=== PATIENT | male | born 1970 | race African-American/Black ===

== ENCOUNTER → 2018-10-17 | Emergency (ER) | payer OTHER ==
[~2018-10-17] MED LIST: KETOROLAC TROMETHAMINE 60 MG/2 ML VIAL IM ONE; KETOROLAC TROMETHAMINE 60 MG/2 ML VIAL ONE; LIDOCAINE 5% TOPICAL PATCH ONE; LIDOCAINE 5% TOPICAL PATCH TP ONE; LIDOCAINE PATCH REMOVAL MC SCH
--- NOTE | 2018-10-17 08:03 | PDOC ---
History of Present Illness - General Chief Complaint: Back Pain Stated Complaint: BACK PAIN Time Seen by Provider: 10/17/18 08:01 History Source: Patient Exam Limitations: No Limitations Past History - Travel Traveled outside of the country in the last 30 days: No Close contact w/someone who was outside of country & ill: No - Past Medical History Allergies/Adverse Reactions: Allergies Allergy/AdvReac Type Severity Reaction Status Date / Time No Known Allergies Allergy Verified 01/20/16 18:08 Home Medications: Ambulatory Orders Ibuprofen 600 mg PO QID PRN #20 tablet 01/20/16 Methadone [Dolophine -] 90 mg PO DAILY 01/20/16 Acetaminophen [Tylenol -] 650 mg PO Q4H #100 tablet 10/17/18 Cyclobenzaprine HCl [Flexeril -] 10 mg PO HS #10 tablet 10/17/18 Methylprednisolone [Medrol Dose Cleve] 4 mg PO ASDIR #21 tablet 10/17/18 COPD: No - Immunization History Immunization Up to Date: Yes - Suicide/Smoking/Psychosocial Hx Smoking History: Current every day smoker Have you smoked in the past 12 months: No Number of Cigarettes Smoked Daily: 20 Information on smoking cessation initiated: No Hx Alcohol Use: Yes Drug/Substance Use Hx: Yes Review of Systems - Review of Systems Able to Perform ROS?: Yes Comments:: 10/17/18 08:02 CONSTITUTIONAL: Absent: fever, chills, diaphoresis, generalized weakness, malaise, loss of appetite GASTROINTESTINAL: Absent: abdominal pain, abdominal distension, nausea, vomiting, diarrhea, constipation, melena, hematochezia GENITOURINARY: Absent: dysuria, frequency, urgency, hesitancy, hematuria, flank pain, genital pain MUSCULOSKELETAL: Present: low back pain Absent: arthralgia, joint swelling SKIN: Absent: rash, itching, pallor NEUROLOGIC: Absent: headache, focal weakness or paresthesias, dizziness, unsteady gait, seizure, mental status changes, bladder or bowel incontinence PSYCHIATRIC: Absent: anxiety, depression, suicidal or homicidal ideation, hallucinations. Is the patient limited Kazakh proficient: No *Physical Exam - Vital Signs Last Vital Signs Temp Pulse Resp BP Pulse Ox 97.6 F 65 18 131/64 98 10/17/18 07:45 10/17/18 07:45 10/17/18 07:45 10/17/18 07:45 10/17/18 07:45 - Physical Exam Comments: 10/17/18 08:02 GENERAL: Well developed, well nourished. Awake and alert. No acute distress. NECK: Supple. Full ROM. No JVD. Carotid pulses 2+ and symmetric, without bruits. No thyromegaly. No lymphadenopathy. MUSCULOSKELETAL TTP of the B/L paraspinous muscles pain worse on the L, L3-S1, with palpable knot consistent with muscle spasm. (+) straight leg raise on the L. No midline tenderness. Decreased ROM of the low back d/t pain. Normal range of motion at all other joints. No bony deformities or tenderness. No CVA tenderness. EXTREMITIES: No cyanosis. No clubbing. No edema. No calf tenderness. SKIN: Warm and dry. Normal capillary refill. No rashes. No jaundice. NEUROLOGICAL: Alert, awake, appropriate. Cranial nerves 2-12 intact. No deficits to light touch and temperature in face, upper extremities and lower extremities. No motor deficits in the in face, upper extremities and lower extremities. Normoreflexic in the upper and lower extremities. Normal speech. Toes are down- going bilaterally. Gait is normal without ataxia. Medical Decision Making - Medical Decision Making 10/17/18 08:03 HPI:the patient is a 48-year-old male with past medical history of herniated disks, opioid dependence, who presents to the ER today for low back pain. Patient states he fell approximately 1 month ago and hurt his back. He was told at that time he had herniated disc. He states that occasionally now when he is walking he will feel a pull in the back. He states that he was walking to work today he felt the twinge in his left lower back and the pain got worse so he called 911. Patient is ambulatory at this time. Denies fevers, chills, trauma, fall, nausea, vomiting, weakness to the lower extremities, numbness and tingling to the lower extremities, saddle anesthesia and bladder bowel incontinence. A/P: Low back pain -Pt with TTP of the B/L paraspinous muscles pain worse on the L, L3-S1, with palpable knot consistent with muscle spasm. (+) straight leg raise on the L. No midline tenderness -No new trauma, or fever. No saddle anesthesia or bladder/bowel incontinence. No CVA tenderness. -Pt is neurologically intact on exam with no focal findings. -Toradol given with relief of symptoms -DC home. Pt to f/u with her PCP. Ortho referral given. -I discussed the physical exam findings, ancillary test results and final diagnoses with the patient. I answered all of the patient's questions. The patient was satisfied with the care received and felt comfortable with the discharge plan and treatment plan. The Patient agrees to follow up with the primary care physician/specialist within 24-72 hours. Return precautions were given. *DC/Admit/Observation/Transfer Diagnosis at time of Disposition: Low back pain Qualifiers: Chronicity: acute Back pain laterality: bilateral Sciatica presence: with sciatica Sciatica laterality: sciatica of left side Qualified Code(s): M54.42 - Lumbago with sciatica, left side - Discharge Dispostion Disposition: HOME Condition at time of disposition: Stable Decision to Admit order: No - Referrals Referrals: Luis Campbell MD [Primary Care Provider] - Brijesh Villela MD, FAANS [Staff Physician] - - Patient Instructions Printed Discharge Instructions: DI for Back Pain With Sciatica Additional Instructions: You were evaluated for your low back pain today and sciatica. It is most likely due to a muscle spasm Please take the Tylenol and Prednisone pack as directed Take the Flexiril every 8 hours the first day. Then take the medication at night only. Do not drink or drive after taking this medication as it may make you drowsy. You may apply warm compresses to the area. Please follow up with orthopedics if your symptoms do not improve this week; a referral has been provided to you Return to the ER for worsening pain despite treatment, numbness/weakness down the extremities, changes in the way you walk, numbness/tingling to the groin, if you have bladder/bowel incontinence, or if you have any changes in your symptoms. - Post Discharge Activity Forms/Work/School Notes: Back to Work
[2018-10-17 08:05] VITALS: BP 131/64; PULSE 65; TEMP 97.6; BMI 34.8
== END | disposition home or self-care (01) ==
LOC: JER 07:36
PROC: 3E0233Z Introduction of Anti-inflammatory into Muscle, Percutaneous Approach (ICD-10-PCS; principal; 2018-10-17)
DX: M54.42 Lumbago with sciatica, left side (principal); F11.20 Opioid dependence, uncomplicated; F17.210 Nicotine dependence, cigarettes, uncomplicated
CPT/HCPCS: 99281-25

== ENCOUNTER 2019-07-23 13:18 | Inpatient (IN) | payer OTHER ==
[2019-07-23 14:51] VITALS: BMI 36.6
--- NOTE | 2019-07-23 15:52 | HP ---
COWS - Scale Resting Pulse: 0= [place] 80 or Below Sweatin= No chills or Flushing Restless Observation: 5= Unable to Sit Still Pupil Size: 2= Moderately Dilated Bone or Joint Aches: 0= None Runny Nose/ Eye Tearin= Runny Nose/Eyes GI Upset > 30mins: 1= Stomach Cramp Tremor Observation: 4= Gross Tremor/Twitching Yawning Observation: 2= >3x During Session Anxiety or Irritability: 2=Irritable/Anxious Goose Flesh Skin: 3=Piloerection COWS Score: 21 CIWA Score - Admission Criteria OASAS Guidelines: Admission for Medically Managed Detox: Requires at least one of the followin. CIWA greater than 12 2. Seizures within the past 24 hours 3. Delirium tremens within the past 24 hours 4. Hallucinations within the past 24 hours 5. Acute intervention needed for co occurring medical disorder 6. Acute intervention needed for co occurring psychiatric disorder 7. Severe withdrawal that cannot be handled at a lower level of care (continued vomiting, continued diarrhea, abnormal vital signs) requiring intravenous medication and/or fluids 8. Admitting History and Physical - Admission History of Present Illness: Seeking detox from heroin. Is not in a methadone program. States he will be in a program starting this coming Sunday. Heroin: since age 20. 10 bags daily. Sniffs. Never injected. Has withdrawn. Has detoxed in the past. Last use was yesterday. Tobacco: smokes 10 cig/day since age 24 No other substance use. Denies alcohol, cocaine, PCP. Feels anxious presently. Has a headache. No nausea. Feels tingling/itching of the skin. Tremors. COWS 21 PMH: none PSH: none Psych: Anxiety/Depression Meds: was on Remeron, Seroquel (stopped last Mar because he lost his medicaid) All: none Soc: long-term. Sexually active with 1 partner, no protection. Last HIV screen during his incarceration last Feb was negative. - Smoking History Smoking history: Current every day smoker Have you smoked in the past 12 months: No Aproximately how many cigarettes per day: 10 - Alcohol/Substance Use Hx Alcohol Use: Yes Admission ROS S - HPI Allergies/Adverse Reactions: Allergies Allergy/AdvReac Type Severity Reaction Status Date / Time No Known Allergies Allergy Verified 07/23/19 14:41 Patient History - Patient Medical History Hx Asthma: No Hx Chronic Obstructive Pulmonary Disease (COPD): No Hx Cardiac Disorders: Yes (unable to describe) Hx Hypertension: No Hx Seizures: No Hx Diabetes: No Hx Gastrointestinal Disorders: No Hx Genitourinary Disorders: No Hx Sexually Transmitted Disorders: No Hx Renal Disease (ESRD): No Hx Depression: Yes Hx Suicide Attempt: No Hx Schizophrenia: No - Patient Surgical History Past Surgical History: No Hx Neurologic Surgery: No Hx Cataract Extraction: No Hx Cardiac Surgery: No Hx Lung Surgery: No Hx Breast Surgery: No Hx Breast Biopsy: No Hx Abdominal Surgery: No Hx Appendectomy: No Hx Cholecystectomy: No Hx Genitourinary Surgery: No Hx Section: No Hx Orthopedic Surgery: No Anesthesia Reaction: No - Reproductive History Patient : No - Smoking Cessation Smoking history: Current every day smoker Have you smoked in the past 12 months: No Aproximately how many cigarettes per day: 10 Hx Chewing Tobacco Use: No Initiated information on smoking cessation: Yes 'Breaking Loose' booklet given: 07/23/19 - Substances abused Heroin Substance route: Inhalation Frequency: Daily Amount used: 10 bags Age of first use: 20 Date of last use: 07/22/19 Admission Physical Exam [facility] - Vital Signs Vital Signs: Vital Signs - 24 hr 07/23/19 14:43 Temperature 97.2 F L Pulse Rate 69 Respiratory 20 Rate Blood Pressure 124/64 - Physical General Appearance: Yes: Other (anxious, pacing) HEENTM: Yes: Within Normal Limits, EOMI, Hearing grossly Normal, Normal ENT Inspection, Normocephalic, Normal Voice, CAIT (5-6mm pupils) Respiratory: Yes: Within Normal Limits, Chest Non-Tender, Lungs Clear Neck: Yes: Within Normal Limits, No masses,lesions,Nodules Cardiology: Yes: Within Normal Limits, Regular Rhythm, Regular Rate, S1, S2. No : Murmur Back: Yes: Within Normal Limits, Normal Inspection Extremities: Yes: Within Normal Limits, Swelling Neurological: Yes: Within Normal Limits, lacquer mixer II-XII NML intact, Fully Oriented, Alert, Motor Strength 5/5, Normal Response Breathalyzer - Breathalyzer Breathalyzer: 0 Urine Drug Screen - Test Device Lot number: [id number] Expiration date: 05/17/21 - Control Is test valid?: Yes - Results Drug screen NEGATIVE: Yes Urine drug screen results: MOP-Opiates Inpatient Rehab Admission - Rehab Decision to Admit Inpatient rehab admission?: No
[2019-07-23] MEDS ORDERED: BISMUTH SUBSALICYLATE 524 MG/30 ML UD PO PRN (16:19)
[2019-07-23] MEDS ORDERED: METHOCARBAMOL 500 MG TABLET PO PRN (16:19)
[2019-07-23] MEDS ORDERED: IBUPROFEN 400 MG TABLET (FP) PO PRN (16:19)
[2019-07-23] MEDS ORDERED: MELATONIN 5 MG TABLETS PO PRN (16:19)
[2019-07-23] MEDS ORDERED: MENTHOL/PHENOL 1 EACH UD MM PRN (16:19)
[2019-07-23] MEDS ORDERED: cloNIDine HCL 0.1 MG TABLET PO PRN (16:19)
[2019-07-23] MEDS ORDERED: MAG HYDROX/AL HYDROX/SIMETH 30 ML UNIT-DOSE CUP PO PRN (16:19)
[2019-07-23] MEDS ORDERED: MAGNESIUM HYDROX 2400MG/30ML ORAL SUSPENSION 30 ML CUP PO PRN (16:19)
[2019-07-23] MEDS ORDERED: ACETAMINOPHEN 325 MG TABLET (FP) PO PRN ×2 (16:19)
[2019-07-23] MEDS ORDERED: MAGNESIUM CITRATE 300 ML BOTTLE PO PRN (16:19)
--- NOTE | 2019-07-23 16:29 | PN ---
Teaching Attending Note Name of Resident: Carloz Beck ATTENDING PHYSICIAN STATEMENT I saw and evaluated the patient. I reviewed the resident's note and discussed the case with the resident. I agree with the resident's findings and plan as documented. SUBJECTIVE: OBJECTIVE: ASSESSMENT AND PLAN: 1. admit detox heroin
[2019-07-23] MEDS ORDERED: METHADONE HCL 10 MG TABLET (FOR DETOX USE ONLY) PO ONE (17:30)
[2019-07-23] MEDS: THIAMINE HCL 100 MG TABLET (FP) PO SCH (21:58)
[2019-07-23] MEDS: hydrOXYzine PAMOATE 25 MG CAPSULE (FP) PO PRN (21:59)
[2019-07-24 09:44] LABS: HEMATOCRIT 43.1 % (35.4-49); HEMOGLOBIN 14.4 GM/dL (11.7-16.9); MCH 29.5 pg (25.7-33.7); MCHC 33.3 g/dl (32.0-35.9); MEAN CELL VOLUME 88.5 fl (80-96); MEAN PLT VOLUME 8.2 fl (7.5-11.1); PLATELET COUNT 179 K/MM3 (134-434); RBC 4.87 M/mm3 (4.00-5.60); RDW 14.4 % (11.9-15.9); WHITE BLOOD COUNT 3.5 K/mm3 (4.0-10.0)
[2019-07-24] MEDS ORDERED: METHADONE (DETOX) 20 MG, METHADONE (DETOX) 5 MG PO ONE (10:00)
[2019-07-24] MEDS ORDERED: METHADONE HCL 10 MG TABLET (FOR DETOX USE ONLY) ONE (10:04)
[2019-07-24] MEDS ORDERED: METHADONE HCL 5 MG TABLET (FOR DETOX USE ONLY) ONE (10:04)
[2019-07-24 10:07] LABS: BILIRUBIN,TOTAL 0.3 mg/dL (0.2-1); BLOOD UREA NITROGEN 8.7 mg/dL (7-18); CALCIUM 8.8 mg/dL (8.5-10.1); POTASSIUM 4.2 mmol/L (3.5-5.1); TOT PROT 6.1 g/dl (6.4-8.2)
--- NOTE | 2019-07-24 10:44 | PN ---
S COWS - Scale Resting Pulse: 0= [place] 80 or Below Sweatin= Chills/Flushing Restless Observation: 1= Difficult to Sit Still Pupil Size: 1= Pupils >than Normal Bone or Joint Aches: 1= Mild Discomfort Runny Nose/ Eye Tearin= Runny Nose/Eyes GI Upset > 30mins: 2= Nausea/Diarrhea Tremor Observation of Outstretched Hands: 2= Slight Tremor Visible Yawning Observation: 1= 1-2x During Session Anxiety or Irritability: 2=Irritable/Anxious Goose Flesh Skin: 0=Smooth Skin COWS Score: 13 S Progress Note (SOAP) Subjective: alert,irritable,anxious,interrupted sleep,pain in the body and back Objective: 07/24/19 10:43 Vital Signs Temperature 97.3 F L 07/24/19 10:01 Pulse Rate 20 L 07/24/19 10:01 Respiratory Rate 63 H 07/24/19 10:01 Blood Pressure 121/75 07/24/19 10:01 O2 Sat by Pulse Oximetry (%) Laboratory Last Values WBC 3.5 K/mm3 (4.0-10.0) L 07/24/19 08:00 RBC 4.87 M/mm3 (4.00-5.60) 07/24/19 08:00 Hgb 14.4 GM/dL (11.7-16.9) 07/24/19 08:00 Hct 43.1 % (35.4-49) 07/24/19 08:00 MCV 88.5 fl (80-96) 07/24/19 08:00 MCH 29.5 pg (25.7-33.7) 07/24/19 08:00 MCHC 33.3 g/dl (32.0-35.9) 07/24/19 08:00 RDW 14.4 % (11.9-15.9) 07/24/19 08:00 Plt Count 179 K/MM3 (134-434) 07/24/19 08:00 MPV 8.2 fl (7.5-11.1) 07/24/19 08:00 Sodium 141 mmol/L (136-145) 07/24/19 08:00 Potassium 4.2 mmol/L (3.5-5.1) 07/24/19 08:00 Chloride 109 mmol/L (98-107) H 07/24/19 08:00 Carbon Dioxide 28 mmol/L (21-32) 07/24/19 08:00 Anion Gap 3 MMOL/L (8-16) L 07/24/19 08:00 BUN 8.7 mg/dL (7-18) 07/24/19 08:00 Creatinine 1.0 mg/dL (0.55-1.3) 07/24/19 08:00 Est GFR (CKD-EPI)AfAm 101.98 07/24/19 08:00 Est GFR (CKD-EPI)NonAf 87.99 07/24/19 08:00 Random Glucose 91 mg/dL (74-106) 07/24/19 08:00 Calcium 8.8 mg/dL (8.5-10.1) 07/24/19 08:00 Total Bilirubin 0.3 mg/dL (0.2-1) 07/24/19 08:00 AST 20 U/L (15-37) 07/24/19 08:00 ALT 22 U/L (13-61) 07/24/19 08:00 Alkaline Phosphatase 75 U/L (45-117) 07/24/19 08:00 Total Protein 6.1 g/dl (6.4-8.2) L 07/24/19 08:00 Albumin 3.0 g/dl (3.4-5.0) L 07/24/19 08:00 07/24/19 10:43 rpr hiv pending Assessment: 07/24/19 10:44 withdrawal symptom Plan: continue detox methadone regimen
[2019-07-24] MEDS: PRENATAL VITAMINS W/ FOLIC ACID TABLET (FP) PO SCH (11:06)
--- NOTE | 2019-07-24 11:16 | CONSULT ---
[facility] Psychiatric Consult - Data Date of interview: 07/24/19 Admission source: [facility] Identifying data: Mr Recio is a 49 years old single Black, father of 3 children, unemployed with no source of income, homeless seeking detox treatment for opioid Substance Abuse History: Reports history of heroin use. Refer to addiction counselor's summary for further information Medical History: Unremarkable except low back pain. Smokes 10 cigarettes daily Psychiatric History: Reports that his first psychiatric contact occured while incarcerated from [id number]. Reports that he was diagnosed with depression and prescribed Remeron. Reports after his release in 1997, he received outpatient psychiatric treatment at [facility], [facility] and he is currently enrolled at [facility] but has yet to see the psychiatrist. Reports one psychiatric hospitalization at [facility] in 2007 for depression and suicidal attempt via overdose. At present, reports feeling depressed and anxious and sleeping poorly Physical/Sexual Abuse/Trauma History: Denies history of abuse as a child or DV relationship as an adult Mental Status Exam - Mental Status Exam Alert and Oriented to: Time, Place, Person Cognitive Function: Fair Patient Appearance: Well Groomed Mood: Depressed, Anxious Affect: Appropriate Patient Behavior: Cooperative Speech Pattern: Clear Thought Process: Intact, Goal Oriented Thought Disorder: Not Present Hallucinations: Denies Suicidal Ideation: Denies Homicidal Ideation: Denies Insight/Judgement: Poor Sleep: Poorly Appetite: Poor Muscle strength/Tone: Normal Gait/Station: Normal Psychiatric Findings - Problem List ([place] 1, 2,3) (1) Depressive disorder Current Visit: Yes Status: Chronic (2) MDD (major depressive disorder), recurrent episode Current Visit: Yes Status: Ruled-out (3) Substance induced mood disorder Current Visit: Yes Status: Acute (4) Substance-induced sleep disorder Current Visit: Yes Status: Acute (5) Uncomplicated opioid dependence Current Visit: Yes Status: Acute (6) Nicotine dependence Current Visit: Yes Status: Chronic (7) Low back pain Current Visit: No Status: Chronic Qualifiers: Chronicity: acute Back pain laterality: bilateral Sciatica presence: with sciatica Sciatica laterality: sciatica of left side Qualified Code(s): M54.42 - Lumbago with sciatica, left side - Initial Treatment Plan Initial Treatment Plan: 1) Start Melatonin 10 mg po HS prn for insomnia. 2) Continue inpatient detoxification
[2019-07-24] MEDS: hydrOXYzine PAMOATE 25 MG CAPSULE (FP) PO PRN ×2 (13:29→22:39)
[2019-07-24] MEDS: THIAMINE HCL 100 MG TABLET (FP) PO SCH (22:36)
[2019-07-24] MEDS: MELATONIN 5 MG TABLETS PO PRN (22:37)
[2019-07-25] MEDS ORDERED: METHADONE HCL 10 MG TABLET (FOR DETOX USE ONLY) PO ONE (10:00)
--- NOTE | 2019-07-25 10:42 | PN ---
S COWS - Scale Resting Pulse: 0= [place] 80 or Below Sweatin= No chills or Flushing Restless Observation: 1= Difficult to Sit Still Pupil Size: 1= Pupils >than Normal Bone or Joint Aches: 1= Mild Discomfort Runny Nose/ Eye Tearin= Runny Nose/Eyes GI Upset > 30mins: 2= Nausea/Diarrhea Tremor Observation of Outstretched Hands: 1= Tremor [place], Not Seen Yawning Observation: 1= 1-2x During Session Anxiety or Irritability: 2=Irritable/Anxious Goose Flesh Skin: 0=Smooth Skin COWS Score: 11 [facility] Progress Note (SOAP) Subjective: alert,irritable,anxious,interrupted sleep,pain in the body and back Objective: 07/25/19 10:41 Vital Signs Temperature 97.9 F 07/25/19 09:01 Pulse Rate 55 L 07/25/19 09:01 Respiratory Rate 18 07/25/19 09:01 Blood Pressure 110/74 07/25/19 09:01 O2 Sat by Pulse Oximetry (%) 07/25/19 10:42 Laboratory Last Values WBC 3.5 K/mm3 (4.0-10.0) L 07/24/19 08:00 RBC 4.87 M/mm3 (4.00-5.60) 07/24/19 08:00 Hgb 14.4 GM/dL (11.7-16.9) 07/24/19 08:00 Hct 43.1 % (35.4-49) 07/24/19 08:00 MCV 88.5 fl (80-96) 07/24/19 08:00 MCH 29.5 pg (25.7-33.7) 07/24/19 08:00 MCHC 33.3 g/dl (32.0-35.9) 07/24/19 08:00 RDW 14.4 % (11.9-15.9) 07/24/19 08:00 Plt Count 179 K/MM3 (134-434) 07/24/19 08:00 MPV 8.2 fl (7.5-11.1) 07/24/19 08:00 Sodium 141 mmol/L (136-145) 07/24/19 08:00 Potassium 4.2 mmol/L (3.5-5.1) 07/24/19 08:00 Chloride 109 mmol/L (98-107) H 07/24/19 08:00 Carbon Dioxide 28 mmol/L (21-32) 07/24/19 08:00 Anion Gap 3 MMOL/L (8-16) L 07/24/19 08:00 BUN 8.7 mg/dL (7-18) 07/24/19 08:00 Creatinine 1.0 mg/dL (0.55-1.3) 07/24/19 08:00 Est GFR (CKD-EPI)AfAm 101.98 07/24/19 08:00 Est GFR (CKD-EPI)NonAf 87.99 07/24/19 08:00 Random Glucose 91 mg/dL (74-106) 07/24/19 08:00 Calcium 8.8 mg/dL (8.5-10.1) 07/24/19 08:00 Total Bilirubin 0.3 mg/dL (0.2-1) 07/24/19 08:00 AST 20 U/L (15-37) 07/24/19 08:00 ALT 22 U/L (13-61) 07/24/19 08:00 Alkaline Phosphatase 75 U/L (45-117) 07/24/19 08:00 Total Protein 6.1 g/dl (6.4-8.2) L 07/24/19 08:00 Albumin 3.0 g/dl (3.4-5.0) L 07/24/19 08:00 RPR Titer Nonreactive (NONREACTIVE) 07/24/19 08:00 HIV 1&2 Antibody Screen Negative 07/24/19 08:00 HIV P24 Antigen Negative 07/24/19 08:00 Assessment: 07/25/19 10:42 withdrawal symptom Plan: continue detox methadone regimen
[2019-07-25] MEDS: PRENATAL VITAMINS W/ FOLIC ACID TABLET (FP) PO SCH (10:57)
[2019-07-25] MEDS: hydrOXYzine PAMOATE 25 MG CAPSULE (FP) PO PRN ×2 (10:59→22:11)
[2019-07-25] MEDS: THIAMINE HCL 100 MG TABLET (FP) PO SCH (22:10)
[2019-07-25] MEDS: MELATONIN 5 MG TABLETS PO PRN (22:12)
[2019-07-26] MEDS ORDERED: METHADONE HCL 10 MG TABLET (FOR DETOX USE ONLY) ONE (09:47)
[2019-07-26] MEDS ORDERED: METHADONE HCL 5 MG TABLET (FOR DETOX USE ONLY) ONE (09:47)
[2019-07-26] MEDS ORDERED: METHADONE (DETOX) 10 MG, METHADONE (DETOX) 5 MG PO ONE (10:00)
[2019-07-26] MEDS: PRENATAL VITAMINS W/ FOLIC ACID TABLET (FP) PO SCH (11:05)
--- NOTE | 2019-07-26 11:15 | PN ---
[facility] COWS - Scale Resting Pulse: 0= [place] 80 or Below Sweatin= Chills/Flushing Restless Observation: 0= Sits Still Pupil Size: 0= Normal to Room Light Bone or Joint Aches: 1= Mild Discomfort Runny Nose/ Eye Tearin= Nasal Congestion GI Upset > 30mins: 1= Stomach Cramp Tremor Observation of Outstretched Hands: 1= Tremor [place], Not Seen Yawning Observation: 0= None Anxiety or Irritability: 1=Feels Anxious/Irritable Goose Flesh Skin: 0=Smooth Skin COWS Score: 6 [facility] Progress Note (SOAP) Subjective: Interrupted sleep and generalized weakness Objective: 07/26/19 11:08 Withdrawal sx Vital Signs 07/26/19 07/26/19 07/26/19 03:38 06:24 11:04 Temperature 97.7 F 98.1 F Pulse Rate 45 L 56 L Respiratory 18 20 20 Rate Blood Pressure 113/73 107/62 VSS Laboratory Last Values WBC 3.5 K/mm3 (4.0-10.0) L 07/24/19 08:00 RBC 4.87 M/mm3 (4.00-5.60) 07/24/19 08:00 Hgb 14.4 GM/dL (11.7-16.9) 07/24/19 08:00 Hct 43.1 % (35.4-49) 07/24/19 08:00 MCV 88.5 fl (80-96) 07/24/19 08:00 MCH 29.5 pg (25.7-33.7) 07/24/19 08:00 MCHC 33.3 g/dl (32.0-35.9) 07/24/19 08:00 RDW 14.4 % (11.9-15.9) 07/24/19 08:00 Plt Count 179 K/MM3 (134-434) 07/24/19 08:00 MPV 8.2 fl (7.5-11.1) 07/24/19 08:00 Sodium 141 mmol/L (136-145) 07/24/19 08:00 Potassium 4.2 mmol/L (3.5-5.1) 07/24/19 08:00 Chloride 109 mmol/L (98-107) H 07/24/19 08:00 Carbon Dioxide 28 mmol/L (21-32) 07/24/19 08:00 Anion Gap 3 MMOL/L (8-16) L 07/24/19 08:00 BUN 8.7 mg/dL (7-18) 07/24/19 08:00 Creatinine 1.0 mg/dL (0.55-1.3) 07/24/19 08:00 Est GFR (CKD-EPI)AfAm 101.98 07/24/19 08:00 Est GFR (CKD-EPI)NonAf 87.99 07/24/19 08:00 Random Glucose 91 mg/dL (74-106) 07/24/19 08:00 Calcium 8.8 mg/dL (8.5-10.1) 07/24/19 08:00 Total Bilirubin 0.3 mg/dL (0.2-1) 07/24/19 08:00 AST 20 U/L (15-37) 07/24/19 08:00 ALT 22 U/L (13-61) 07/24/19 08:00 Alkaline Phosphatase 75 U/L (45-117) 07/24/19 08:00 Total Protein 6.1 g/dl (6.4-8.2) L 07/24/19 08:00 Albumin 3.0 g/dl (3.4-5.0) L 07/24/19 08:00 RPR Titer Nonreactive (NONREACTIVE) 07/24/19 08:00 HIV 1&2 Antibody Screen Negative 07/24/19 08:00 HIV P24 Antigen Negative 07/24/19 08:00 Labs noted, no panic values Assessment: 07/26/19 11:15 Withdrawal sx Plan: Continue detox
[2019-07-26] MEDS ORDERED: ONDANSETRON *ODT* 4 MG TABLET SL ONE (19:08)
[2019-07-26] MEDS: MELATONIN 5 MG TABLETS PO PRN (22:08)
[2019-07-26] MEDS: hydrOXYzine PAMOATE 25 MG CAPSULE (FP) PO PRN (22:08)
[2019-07-26] MEDS: THIAMINE HCL 100 MG TABLET (FP) PO SCH (22:08)
[2019-07-27 09:40] VITALS: BP 97/60; PULSE 89; TEMP 97
[2019-07-27] MEDS ORDERED: METHADONE HCL 5 MG TABLET (FOR DETOX USE ONLY) PO ONE (09:54)
[2019-07-27] MEDS ORDERED: METHADONE HCL 10 MG TABLET (FOR DETOX USE ONLY) PO ONE (10:00)
[2019-07-27] MEDS: PRENATAL VITAMINS W/ FOLIC ACID TABLET (FP) PO SCH (10:04)
--- NOTE | 2019-07-27 17:36 | DS ---
[facility] Detox Discharge Summary Admission Date: 07/23/19 Discharge Date: 07/27/19 - History Present History: Opioid Dependence Additional Comments: Patient requested to be discharged today instead of tomorrow. Patient agreed to have detox protocol for methadone adjusted (changed from 10mg to 5 mg today so that he can be discharged). As per patient, he has appt for Methadone clinic tomorrow at 07:30 and he prefers to leave today. Patient denies any withdrawal sxs and is stable for discharge today. Instructed to follow up with PCP within 1 -2 weeks post discharge. Pertinent Past History: Nicotine dependence Opioid dependence - Physical Exam Results Vital Signs: Vital Signs Temperature 97 F L 07/27/19 09:09 Pulse Rate 89 07/27/19 09:09 Respiratory Rate 18 07/27/19 09:09 Blood Pressure 97/60 07/27/19 09:09 O2 Sat by Pulse Oximetry (%) Pertinent Admission Physical Exam Findings: Withdrawal sxs Laboratory Tests 07/24/19 07/24/19 07/24/19 08:00 08:00 08:00 WBC 3.5 L RBC 4.87 Hgb 14.4 Hct 43.1 MCV 88.5 MCH 29.5 MCHC 33.3 RDW 14.4 Plt Count 179 MPV 8.2 Sodium 141 Potassium 4.2 Chloride 109 H Carbon Dioxide 28 Anion Gap 3 L BUN 8.7 Creatinine 1.0 Est GFR (CKD-EPI)AfAm 101.98 Est GFR (CKD-EPI)NonAf 87.99 Random Glucose 91 Calcium 8.8 Total Bilirubin 0.3 AST 20 ALT 22 Alkaline Phosphatase 75 Total Protein 6.1 L Albumin 3.0 L RPR Titer HIV 1&2 Antibody Screen Negative HIV P24 Antigen Negative 07/24/19 08:00 WBC RBC Hgb Hct MCV MCH MCHC RDW Plt Count MPV Sodium Potassium Chloride Carbon Dioxide Anion Gap BUN Creatinine Est GFR (CKD-EPI)AfAm Est GFR (CKD-EPI)NonAf Random Glucose Calcium Total Bilirubin AST ALT Alkaline Phosphatase Total Protein Albumin RPR Titer Nonreactive HIV 1&2 Antibody Screen HIV P24 Antigen Labs reviewed - Treatment Hospital Course: Detox Protocol Followed, Detoxed Safely, Responded well, Discharged Condition Good - Medication Discharge Medications: Ambulatory Orders NK [No Known Home Medication] 07/23/19 - Diagnosis (1) Alcohol dependence with withdrawal, uncomplicated Status: Acute (2) Nicotine dependence Status: Chronic - AMA Did Patient Leave Against Medical Advice: No (Follow up with PCP within 1-2 weeks)
[2019-07-28] MEDS ORDERED: METHADONE HCL 5 MG TABLET (FOR DETOX USE ONLY) PO ONE (06:00)
== END 2019-07-27 10:50 | disposition home or self-care (01) | DRG 773 ==
LOC: YASAS 13:18 → EDBD 13:18 → Y6N 16:47
PROVIDERS: ADMIT Allergy & Immunology; ATTEND Allergy & Immunology
PROC: HZ2ZZZZ Detoxification Services for Substance Abuse Treatment (ICD-10-PCS; principal; 2019-07-23)
DX: F11.23 Opioid dependence with withdrawal (principal); F17.210 Nicotine dependence, cigarettes, uncomplicated; F19.282 Other psychoactive substance dependence with psychoactive substance-induced sleep disorder; F19.24 Other psychoactive substance dependence with psychoactive substance-induced mood disorder; F33.1 Major depressive disorder, recurrent, moderate; M54.42 Lumbago with sciatica, left side; Z91.5 Personal history of self-harm
CPT/HCPCS: 36415; 80053; 85027; 86593; 87389; Q0162

== ENCOUNTER 2021-01-05 11:12 | Emergency (ER) | payer OTHER ==
[2021-01-05 11:25] VITALS: BP 114/75; PULSE 67; TEMP 98.4; BMI 36.2
== END 2021-01-05 14:27 | disposition home or self-care (01) ==
LOC: JERFT 11:12
DX: M25.462 Effusion, left knee (principal)
CPT/HCPCS: 73562-TC-LT-FY; 93971-TC; 99284-25

== ENCOUNTER 2024-08-12 13:55 | Observation (INO) | payer OTHER ==
[2024-08-12 14:28] VITALS: BMI 37.6
[2024-08-12] MEDS: SODIUM CHLORIDE 0.9% 1000 ML INFUS.BAG IV ONE (15:41)
[2024-08-12 15:46] LABS: BASO % 0.2 % (0-2.0); EOS % 5.1 % (0-4.5); HEMATOCRIT 40.8 % (35.4-49); HEMOGLOBIN 13.5 GM/dL (11.7-16.9); LYMPH % 50.9 % (8-40); MCH 28.7 pg (25.7-33.7); MCHC 33.1 g/dl (32.0-35.9); MEAN CELL VOLUME 86.8 fl (80-96); MEAN PLT VOLUME 7.9 fl (7.5-11.1); MONO % 6.8 % (3.8-10.2); PLATELET COUNT 204 10^3/uL (134-434); RDW 13.7 % (11.9-15.9); WHITE BLOOD COUNT 4.6 K/mm3 (4.0-10.0)
[2024-08-12 16:12] LABS: POTASSIUM 4.6 mmol/L (3.5-5.1)
[2024-08-12 16:18] LABS: ALBUMIN 3.5 g/dl (3.4-5.0); BLOOD UREA NITROGEN 11.3 mg/dL (7-18)
[2024-08-12 16:21] LABS: CREATININE 1.1 mg/dL (0.55-1.3)
[2024-08-12 16:23] LABS: BILIRUBIN,TOTAL 0.5 mg/dL (0.2-1)
[2024-08-12 18:39] LABS: URINE APPEARANCE CLEAR; URINE BILIRUBIN NEGATIVE (NEGATIVE); URINE COLOR YELLOW; URINE GLUCOSE (UA) NEGATIVE (NEGATIVE); URINE KETONE NEGATIVE (NEGATIVE); URINE LEUK ESTERASE NEGATIVE (NEGATIVE); URINE NITRITE NEGATIVE (NEGATIVE); URINE PROTEIN NEGATIVE (NEGATIVE); URINE UROBILINOGEN 0.2 mg/dL (0.2-1.0)
[2024-08-12 18:43] LABS: PHENCYCLIDINE,URINE NEGATIVE (NEGATIVE)
[2024-08-12 18:44] LABS: COCAINE, UR NEGATIVE (NEGATIVE); URINE AMPHETAMINES NEGATIVE (NEGATIVE); URINE BARBITURATES NEGATIVE (NEGATIVE); URINE BENZODIAZEPINES NEGATIVE (NEGATIVE)
[2024-08-12 18:45] LABS: METHADONE, UR POSITIVE (NEGATIVE); OPIATES, URI POSITIVE (NEGATIVE)
[2024-08-13] MEDS ORDERED: ACETAMINOPHEN 325 MG TABLET (FP) PO PRN (04:04)
[2024-08-13] MEDS: lamoTRIgine 25 MG TABLET PO ONE (04:53)
[2024-08-13] MEDS: IBUPROFEN 400 MG TABLET (FP) PO PRN (04:53)
[2024-08-13] MEDS: ACETAMINOPHEN 650 MG/20.3 ML ORAL SOLUTION (CUPS) PO ONE (06:22)
[2024-08-13 07:43] LABS: HEMATOCRIT 39.8 % (35.4-49); HEMOGLOBIN 12.9 GM/dL (11.7-16.9); MCH 28.8 pg (25.7-33.7); MCHC 32.5 g/dl (32.0-35.9); MEAN CELL VOLUME 88.6 fl (80-96); PLATELET COUNT 199 10^3/uL (134-434); RBC 4.49 M/mm3 (4.00-5.60); RDW 13.8 % (11.9-15.9); WHITE BLOOD COUNT 4.9 K/mm3 (4.0-10.0)
[2024-08-13 07:51] LABS: POTASSIUM 4.3 mmol/L (3.5-5.1)
[2024-08-13 07:54] LABS: BLOOD UREA NITROGEN 13.4 mg/dL (7-18); CALCIUM 8.6 mg/dL (8.5-10.1)
[2024-08-13 07:55] LABS: ALBUMIN 3.2 g/dl (3.4-5.0); MAGNESIUM 2.1 mg/dL (1.8-2.4)
[2024-08-13 07:58] LABS: CREATININE 1.1 mg/dL (0.55-1.3); PHOSPHOROUS 3.8 mg/dL (2.5-4.9)
[2024-08-13 07:59] LABS: BILIRUBIN,TOTAL 0.3 mg/dL (0.2-1); TOT PROT 6.3 g/dl (6.4-8.2)
[2024-08-13] MEDS: clonazePAM 0.5 MG TABLET PO SCH (09:32)
[2024-08-13] MEDS: PRAZOSIN HCL 1 MG CAPSULE PO SCH (10:29)
[2024-08-13] MEDS: methaDONE HCL 40 MG DISPERSABLE TABLET PO SCH (16:51)
[2024-08-13 18:09] VITALS: BP 125/79; PULSE 63; RESP 18; TEMP 98
[2024-08-13] MEDS ORDERED: traZODone HCL 50 MG TABLET (FP) PO SCH (22:00)
== END 2024-08-13 19:12 | disposition home or self-care (01) ==
LOC: JER 13:55 → JERBED 18:07 → J4S 22:06
PROVIDERS: ADMIT Student in an Organized Health Care Education/Training Program; ATTEND Internal Medicine
PROC: 3E0337Z Introduction of Electrolytic and Water Balance Substance into Peripheral Vein, Percutaneous Approach (ICD-10-PCS; principal; 2024-08-12)
DX: T50.901A Poisoning by unspecified drugs, medicaments and biological substances, accidental (unintentional), initial encounter (principal); X58.XXXA Exposure to other specified factors, initial encounter; F19.99 Other psychoactive substance use, unspecified with unspecified psychoactive substance-induced disorder; R00.1 Bradycardia, unspecified; E87.8 Other disorders of electrolyte and fluid balance, not elsewhere classified; F32.9 Major depressive disorder, single episode, unspecified; G47.8 Other sleep disorders; F43.10 Post-traumatic stress disorder, unspecified; E03.9 Hypothyroidism, unspecified
CPT/HCPCS: 36415; 80053; 80175; 80307; 81003; 82550; 82962; 83735; 84100; 84146; 84439; 84443; 84480; 84481; 84484; 85025; 85027; 87086; 99285-25; G0378